=== PATIENT | female | born 1995 | race Hispanic/Latino ===

== ENCOUNTER 2018-04-15 09:16 | Observation (INO) | payer MEDICAID ==
[~2018-04-15] VITALS: Ht 157.5 cm; Wt 88.0 kg
[2018-04-15] MEDS ORDERED: LACTATED RINGERS 1000ML 1,000 ML IV SCH (10:00)
[2018-04-15 10:01] LABS: APPEARANCE,URINE Clear (CLEAR); BILIRUBIN,URINE Negative (NEGATIVE); COLOR,URINE Yellow (YELLOW); GLUCOSE, URINE (UA) Negative (NEGATIVE); KETONES,URINE Negative (NEGATIVE); LEUKOCYTE ESTERASE ,URINE Small (NEGATIVE); NITRATE,URINE Negative (NEGATIVE); OCCULT BLOOD,URINE Negative (NEGATIVE); PROTEIN,URINE Negative (NEGATIVE)
[2018-04-15 10:20] LABS: BACTERIA,URINE Few /HPF (None Seen); RBC,URINE 0-1 /HPF (0-1); SQUAMOUS EPITHELIAL CELL,UR Few /HPF (0-2)
== END 2018-04-15 11:08 | disposition home or self-care (01) ==
LOC: EDH 09:16 → LDH 09:17
PROVIDERS: ADMIT Obstetrics & Gynecology; ATTEND Obstetrics & Gynecology
DX: O99.513 Diseases of the respiratory system complicating pregnancy, third trimester (principal); R05 Cough; O26.893 Other specified pregnancy related conditions, third trimester; R10.9 Unspecified abdominal pain; M54.9 Dorsalgia, unspecified; R06.7 Sneezing; R07.89 Other chest pain; R51 Headache; Z87.891 Personal history of nicotine dependence; Z3A.28 28 weeks gestation of pregnancy
CPT/HCPCS: 81001; 99284; G0378 ×2; J7120; 96360

== ENCOUNTER 2024-10-08 16:43 | Emergency (ER) | payer SELFPAY ==
[~2024-10-08] VITALS: Ht 157.5 cm; Wt 99.8 kg
[2024-10-08 16:45] VITALS: BP 154/94; PULSE 106; RESP 16; TEMP 99.8
--- NOTE | 2024-10-08 17:23 | ERN ---
ED Note History of Present Illness Stated Complaint: NUMBNESS IN ARM, PAIN IN SIDE;IMPLANT Chief Complaint: Arm Swelling/Redness Time Seen by MD: 16:44 Dictation: Patient is a 29-year-old female coming in today with complaints of left medial biceps and arm pain she has had several days. She has had low-grade fever chills. Also states she has had vaginal bleeding since July of this year. States she has a nor plant that was placed by Dr. Farzad Mitchell six years ago and she could not get it taken out because she has no Medicaid. Distal neurovascular CMS intact. Mild erythema noted to left medial biceps Allergies: Coded Allergies: No Known Drug Allergies (Unverified Allergy, Unknown, 04/15/18) Past Medical History Past Medical History: No Pertinent History Surgical History: None RN Note Reviewed/Agreed w/PFSH: Yes Review of System Dictation CONSTITUTIONAL: Negative except for HPI fever chills HEAD/FACE: Negative except for HPI EENT: Negative except for HPI RESPIRATORY: Negative except for HPI GASTROINTESTINAL/ABDOMINAL: Negative except for HPI GENITOURINARY: Negative except for HPI vaginal bleeding three months MUSCULOSKELETAL: Negative except for HPI left medial biceps pain proximal implants INTEGUMENTARY: Negative except for HPI NEUROLOGICAL/PSYCH: Negative except for HPI HEMATOLOGIC/LYMPHATIC: Negative except for HPI All Systems Negative, Except as noted above. 13 point review of systems assessed and all negative except for above. Initial Vital Sign VS Vital Signs Date Time Temp Pulse Resp B/P (MAP) Pulse Ox O2 Delivery O2 Flow Rate FiO2 10/08/24 16:45 99.9 106 16 154/94 98 Room Air 0 Physical Exam Dictation Vital Signs reviewed General Appearance: Alert, oriented x 3, mild acute distress, well developed, nourished. Obese Head and Face: non-traumatic. Eyes: PERRL, pink conjunctivas, eyelid no trauma, anterior chamber with arcus senilis. Ears: Pinnas intact and no signs of trauma or erythema ear canals clear and no discharge TM no erythema Nose: No discharge, no bleeding. Oropharynx: Mouth normal, tongue pink, pharynx clear,no erythema, tonsils no exudates, no abscesses noted, mucous membrane moist Neck: Supple, non-tender, no thyromegaly, no masses, no JVD, no bruits Breast:Deferred Chest:No tenderness, no crepitus, no paradoxical movement, no retractions Lungs:Clear, well-ventilated, symmetric, no rales, no wheezing, no rhonchi, no stridor, good breath sounds bilaterally Heart: Regular rate, regular rhythm, no murmur, no gallops Vascular: no peripheral edema, Abdomen: Soft, positive bowel sounds, nondistended, no guarding, nontender, no rebound, no masses no hepatomegaly, no splenomegaly, no Herrmann's sign, no hernias. Rectal: Deferred Genital: Deferred Neurological: Normal speech, motor function intact, sensory function intact Musculoskeletal: Neck nontender, full range of motion, back nontender, full range of motion, Extremities: Mild erythema to left medial biceps. Distal neurovascular CMS intact. Skin: Color pink, dry, no turgor, no rash, no lacerations, no abrasions, no c ontusions. Lymphatic: Deferred Results (Laboratory/Radiology) Labs Reviewed?: Yes ED Course ED Course Orders Procedure Category Date Status Time Blood Cult SILVESTRE 10/08/24 Logged 17:17 Lactic Acid LAB 10/08/24 Logged 17:17 Cbc With Differential LAB 10/08/24 Logged 17:17 0.9%Nacl 1000ml (Ns PHA 10/08/24 Complete 1000ml) 17:30 Basic Metabolic Panel LAB 10/08/24 Logged 17:17 Testing, LAB 10/08/24 Logged Serum Hcg 17:17 Acetaminophen 500mg PHA 10/08/24 Complete Tab (Tylenol 500mg T 17:30 Urinalysis Profile LAB 10/08/24 Logged 17:17 Current Medications Medications (Trade) Dose Ordered Sig/Geoffrey Route PRN Reason Start Time Stop Time Status Last Admin Dose Admin Acetaminophen (TYLenol 500MG TAB) 1,000 mg ONCE ONCE PO 10/08/24 17:30 10/08/24 17:32 DC Sodium Chloride 1,000 ml @ 0 mls/hr ONCE ONCE IV 10/08/24 17:30 10/08/24 17:32 DC Vital Signs Date Time Temp Pulse Resp B/P (MAP) Pulse Ox O2 Delivery O2 Flow Rate FiO2 10/08/24 16:45 99.9 106 16 154/94 98 Room Air 0 Medical Decision Making [facility] 1750/PATIENT LEFT ER WAITING ROOM AGAINST MEDICAL ADVICE. NO LABS WERE DRAWN. DX & DISP Disposition: AMA Decision to Admit Time: 17:58 Departure Impression: Primary Impression: Left upper arm pain Condition: Stable Referrals: SELF,REFERRAL (PCP) Time of Disposition: 17:59 I have reviewed the case, and I agree with, Diagnosis and Plan YE KAHN DIET TECHNICIAN REGISTERED Oct 08, 2024 17:23
--- NOTE | 2024-10-08 17:28 | NUR ---
PT NOT ANSWERING FROM WAITING AREA
[2024-10-08] MEDS ORDERED: 0.9%NACL 1000ML 1,000 ML IV ONE (17:30)
== END 2024-10-08 17:49 | disposition left against medical advice (07) ==
LOC: EDH 16:43
DX: M79.622 Pain in left upper arm (principal)
CPT/HCPCS: 99282; 99283